=== PATIENT | female | born 1995 | race Two or more races ===

== ENCOUNTER 2021-01-04 14:18 | Outpatient (REF) | payer OTHER, SELFPAY | END 2021-01-04 14:19 | disposition home or self-care (01) | LOC: HO.LAB 14:18 | PROVIDERS: Visit Provider Internal Medicine | DX: Z20.822 Contact with and (suspected) exposure to COVID-19 (principal) | CPT/HCPCS: 36415; C9803; U0003; U0005 ==

== ENCOUNTER 2021-12-23 14:16 | Outpatient (REF) | payer OTHER, SELFPAY ==
[2021-12-23 14:38] LABS: Hematocrit 37.6 % (37.0-47.0); Hemoglobin 12.7 g/dl (12.0-16.0); Mean Corpuscular HGB Conc 33.8 g/dl (31.0-35.0); Mean Corpuscular Hemoglobin 31.4 pg (27.0-33.0); Mean Corpuscular Volume 92.8 fL (80.0-98.0); Mean Platelet Volume 10.5 fL (9.4-12.3); Platelet Count 280 X10*3/uL (160-400); Red Blood Count 4.05 X10*6/uL (4.20-5.50)
[2021-12-23 15:05] LABS: Alanine Aminotransferase 12 U/L (0-31); Albumin Level 4.2 g/dL (3.5-5.0); Alkaline Phosphatase 56 U/L (39-117); Anion Gap 10 (12-20); Aspartate Amino Transferase 15 U/L (5-31); Bilirubin Total 0.8 mg/dL (0.0-1.0); Blood Urea Nitrogen 8 mg/dL (9-16); Calcium 9.4 mg/dL (8.4-10.2); Carbon Dioxide 26 mmol/L (22-29); Chloride 105 mmol/L (96-108); Cholesterol 124 mg/dL; Estimated Glomerular Filt Rate > 60; Glucose Fasting 94 mg/dL (60-99); HDL Cholesterol 41 mg/dL; LDL Cholesterol Calculated 69 mg/dl; Potassium 3.7 mmol/L (3.3-5.1); Sodium 137 mmol/L (135-145); Total Protein 7.7 g/dL (6.5-8.0); Triglycerides 73 mg/dL
[2021-12-23 15:24] LABS: TSH reflex Free T4 1.73 uIU/mL (0.32-4.0)
== END 2021-12-23 14:17 | disposition home or self-care (01) ==
LOC: HO.LAB 14:16
PROVIDERS: Visit Provider Nurse Practitioner Family
DX: M35.00 Sjogren syndrome, unspecified (principal); E78.00 Pure hypercholesterolemia, unspecified; Z76.89 Persons encountering health services in other specified circumstances
CPT/HCPCS: 36415; 80053; 80061; 84443; 85027

== ENCOUNTER 2022-08-24 11:20 | Emergency (ER) | payer OTHER, SELFPAY | END 2022-08-24 14:35 | disposition left against medical advice (07) | PROVIDERS: Emergency Provider Emergency Medicine | DX: R50.9 Fever, unspecified (principal); M54.50 Low back pain, unspecified ==

== ENCOUNTER 2022-10-21 14:09 | Outpatient (REF) | payer OTHER, SELFPAY ==
[2022-10-21 18:08] LABS: CT PCR NOT DETECTED (Not Detect.); NG PCR NOT DETECTED (Not Detect.)
[2022-10-22 12:15] LABS: BV Int Neg Control Negative (Negative); BV Int Pos Control Positive (Positive)
== END 2022-10-21 14:10 | disposition home or self-care (01) ==
LOC: HO.LNP 14:09
PROVIDERS: Visit Provider Physician Assistant
DX: Z11.3 Encounter for screening for infections with a predominantly sexual mode of transmission (principal); R30.0 Dysuria
CPT/HCPCS: 87480; 87491; 87510; 87591; 87660

== ENCOUNTER 2022-11-14 08:20 | Outpatient (REF) | payer OTHER, SELFPAY ==
[2022-11-14 08:39] LABS: MANUAL DIFF FLAG NO
[2022-11-14 10:03] LABS: Basophils Percent Auto 0.5 % (0-2); Eosinophils Absolute Auto 0.2 X10*3/uL (0.0-0.4); Eosinophils Percent Auto 1.9 % (0-4); Hematocrit 41.5 % (37.0-47.0); Hemoglobin 13.8 g/dl (12.0-16.0); Imm Gran Abs Auto 0.03 X10*3/uL (0.00-0.03); Imm Gran Pct Auto 0.3 % (0.0-0.4); Lymphocytes Absolute Auto 1.9 X10*3/uL (1.2-4.9); Lymphocytes Percent Auto 21.9 % (20-40); Mean Corpuscular HGB Conc 33.3 g/dl (31.0-35.0); Mean Corpuscular Hemoglobin 30.6 pg (27.0-33.0); Mean Platelet Volume 10.9 fL (9.4-12.3); Monocytes Absolute Auto 0.5 X10*3/uL (0.1-1.2); Monocytes Percent Auto 6.1 % (2-11); Neutrophils Percent Auto 69.3 % (45-73); Platelet Count 282 X10*3/uL (160-400); Red Blood Count 4.51 X10*6/uL (4.20-5.50); Red Cell Distribution Width 12.3 % (11.0-16.0); White Blood Count 8.6 X10*3/uL (4.8-10.8)
[2022-11-14 14:24] LABS: Alanine Aminotransferase 46 U/L (0-31); Albumin Level 4.5 g/dL (3.5-5.0); Alkaline Phosphatase 61 U/L (39-117); Anion Gap 11 (12-20); Aspartate Amino Transferase 33 U/L (5-31); Bilirubin Total 0.6 mg/dL (0.0-1.0); Blood Urea Nitrogen 15 mg/dL (9-16); Calcium 9.8 mg/dL (8.4-10.2); Carbon Dioxide 26 mmol/L (22-29); Chloride 106 mmol/L (96-108); Cholesterol 129 mg/dL; Estimated Glomerular Filt Rate > 60; Glucose Fasting 87 mg/dL (60-99); HDL Cholesterol 34 mg/dL; LDL Cholesterol Calculated 83 mg/dl; Potassium 4.2 mmol/L (3.3-5.1); Sodium 139 mmol/L (135-145); TSH reflex Free T4 2.16 uIU/mL (0.32-4.0); Total Protein 7.6 g/dL (6.5-8.0); Triglycerides 63 mg/dL; Vitamin D 25-OH Total 40.3 ng/mL (>30)
== END 2022-11-14 08:21 | disposition home or self-care (01) ==
LOC: HO.LAB 08:20
PROVIDERS: PCP Nurse Practitioner Family; Visit Provider Nurse Practitioner Family
DX: Z00.00 Encounter for general adult medical examination without abnormal findings (principal)
CPT/HCPCS: 36415; 80053; 80061; 82306; 84443; 85025

== ENCOUNTER 2022-11-17 17:38 | Outpatient (REF) | payer OTHER, SELFPAY ==
[2022-11-17 18:29] LABS: Influenza A PCR NEGATIVE (Negative); Influenza B PCR NEGATIVE (Negative); Resp Syncy Virus RNA Qual PCR NEGATIVE (Negative); SARS COV2 PCR INHOUSE NEGATIVE (Negative)
== END 2022-11-17 17:39 | disposition home or self-care (01) ==
LOC: HO.LNP 17:38
PROVIDERS: Visit Provider Internal Medicine
DX: Z20.822 Contact with and (suspected) exposure to COVID-19 (principal); R09.89 Other specified symptoms and signs involving the circulatory and respiratory systems
CPT/HCPCS: 0241U

== ENCOUNTER 2022-12-15 08:51 | Outpatient (REF) | payer OTHER, SELFPAY ==
[2022-12-15 09:33] LABS: Alanine Aminotransferase 9 U/L (0-31); Albumin Level 4.2 g/dL (3.5-5.0); Alkaline Phosphatase 65 U/L (39-117); Aspartate Amino Transferase 15 U/L (5-31); Bilirubin Direct 0.2 mg/dL (0.0-0.5); Bilirubin Total 0.7 mg/dL (0.0-1.0); Total Protein 7.1 g/dL (6.5-8.0)
== END 2022-12-15 08:52 | disposition home or self-care (01) ==
LOC: HO.LAB 08:51
PROVIDERS: PCP Nurse Practitioner Family; Visit Provider Nurse Practitioner Family
DX: R79.89 Other specified abnormal findings of blood chemistry (principal)
CPT/HCPCS: 36415; 80076

== ENCOUNTER 2022-12-26 14:07 | Outpatient (REF) | payer OTHER, SELFPAY ==
[2022-12-26 15:33] LABS: Influenza A PCR NEGATIVE (Negative); Influenza B PCR NEGATIVE (Negative); Resp Syncy Virus RNA Qual PCR NEGATIVE (Negative); SARS COV2 PCR INHOUSE NEGATIVE (Negative)
== END 2022-12-26 14:08 | disposition home or self-care (01) ==
LOC: HO.LNP 14:07
PROVIDERS: Visit Provider Physician Assistant
DX: Z20.822 Contact with and (suspected) exposure to COVID-19 (principal); B34.9 Viral infection, unspecified
CPT/HCPCS: 0241U

== ENCOUNTER 2023-10-13 08:05 | Outpatient (AMB) | payer OTHER, SELFPAY ==
--- NOTE | 2023-10-13 08:55 | AM.OFFWIN_ITS ---
Intake Vital Signs 10/13/23 08:56 Height 5 ft 4 in Weight 136 lb 4 oz BMI 23.4 BP 102/68 Blood Pressure Location Rt brachial Position Sitting Pulse 88 Pulse Source Pulse Oximeter Temp 96.5 F L Temp Source Temporal Artery Scan Pulse Oximetry (%) 100 Oxygen Delivery Method Room Air Intake Visit Reasons: EP Lower back and Pelvic pain [phone] Intake Note: pt is here for c.o lower back pain, pelvic pain 1week Patient Tobacco Use Status: Never used Tobacco Patient : No (Patient states miscarriage 09/04/2023. At 6 weeks.) Allergies No Known Allergies Allergy (Verified 10/13/23 08:56) Do you need a note to return to daycare/school/sports/work: Yes HPI HPI Comments History of Present Illness Details The patient is a 31-year-old female in today for a sick visit. She states that for the past 2 weeks she has experienced lower right-sided back pain which radiates down her right leg. She noticed the pain after having a large sneeze. Little relief with [id number] medications. She denies fevers or chills, nausea or vomiting. She denies blood in her urine or any discharge. On physical exam the patient was found to be positive for the straight leg test on the right leg. No point tenderness on the cervical spine. Patient has normal range of motion, flexion, extension, rotation. Pulses are +2. No numbness or tingling. Patient in office urine test was positive for UTI. Patient likely has SI joint dysfunction as well as a urinary tract infection. This is unlikely to be cauda equina, cord compression, or appendicitis. Patient will be given cyclobenzaprine and meloxicam for the lower back pain. She will be given Bactrim for the urinary tract infection. Patient has been educated on the side effects of these medications, and has been educated to complete the entire course of the antibiotic. Labs have been drawn and patient will be called with results. She has been educated on signs of worsening symptoms and when to return to the ER and when to present to the walk-in clinic. She has been instructed to follow-up with her PCP. She is agreeable to this plan. [facility] Medical History (Updated 10/13/23 @ 09:47 by LEIF Delgado) Urinary tract infection Polyalgia Dry mouth Hypothyroidism during (~2019) Sjogrens syndrome Surgical History History of section Family History Mother Mental health disorder Substance use disorder Ovarian cancer, Onset Age: 28 Arthritis SLE (systemic lupus erythematosus) Hypertension Father Mental health disorder Substance use disorder Maternal Grandmother Ovarian cancer Heart disease Maternal Aunt Ovarian cancer Paternal Grandfather FH: testicular cancer Paternal Grandmother Heart disease Social History Housing: House Alcohol intake: current Alcohol intake frequency: holidays/special occasions only Patient Tobacco Use Status: Never used Tobacco e-Cigarette/Vaping Use: Never Used Second Hand Smoke Exposure: No service: No Current occupational status: employed Cognitive needs: No Hearing needs: No Vision needs: Yes (glasses) Review of Systems Const Details: Constitutional : No Weight loss, No Fever, No Chills, No Fatigue, No Malaise Cardiovascular : No Chest Pain, No SOB, No Dyspnea on Exertion Respiratory : No Cough, No Sputum, No Wheezing Gastrointestinal : No Nausea, No Vomiting, No Diarrhea, No Constipation, No abdominal Pain, No Hematochezia. Genitourinary : No Dysuria, No Urinary Frequency, No Hematuria Musculoskeletal : admits lower back pain that radiates down right leg. Neuro : No Weakness, No Numbness, No Dizziness, No Headache Heme/Lymph: No Bruising, No Bleeding,No Lymphadenopathy Endocrine : No Polyuria, No Polydipsia All other systems reviewed and are negative All systems reviewed & are unremarkable except as noted in HPI and below Physical Exam Vital Signs: Last Vital Signs Temp 96.5 F L 10/13/23 08:56 Pulse 88 10/13/23 08:56 BP 102/68 10/13/23 08:56 Pulse Ox 100 10/13/23 08:56 Oxygen Delivery Method Room Air 10/13/23 08:56 BMI result Body Mass Index 23.4 Vital signs reviewed and are stable Appearance: Alert.? Oriented X3.? No acute distress.? Head: Normocephalic, Neck: Normal inspection.? Neck supple.? CVS: Normal heart rate and rhythm.? Pulses normal.? Respiratory: No respiratory distress.? Breath sounds normal.? Abdomen: Soft and nontender.? Skin: Skin warm and dry.? Normal skin color.? Normal skin turgor.? Extremities: No lower extremity edema.? No calf ttp. 5/5 strength to bilateral upper and lower extremities. Back: No midline tenderness, no C-spine tenderness, full range of motion, no CVA tenderness bilaterally. Positive straight leg test. Neuro: Oriented X 3.? No motor deficit.? No sensory deficit. No numbness. Results AMB Urinalysis, Automated UA Leukoctes 15 Jory/uL Last Edit by Jovita Guerrero CMA on 10/13/23 09:09 UA Nitrite Negative Last Edit by Jovita Guerrero, AUTO RESEARCH ENGINEER on 10/13/23 09:09 UA Urobilinogen 0.2 mg/dL Last Edit by Jovita Guerrero, AUTO RESEARCH ENGINEER on 10/13/23 09:09 UA Protein 0 mg/dL Last Edit by Jovita Guerrero, AUTO RESEARCH ENGINEER on 10/13/23 09:09 UA pH 6.0 Last Edit by Jovita Guerrero, AUTO RESEARCH ENGINEER on 10/13/23 09:09 UA Blood 25 Christiano/uL Last Edit by Jovita Guerrero, AUTO RESEARCH ENGINEER on 10/13/23 09:09 UA Specific [place] 1.030 Last Edit by Jovita Guerrero, MAGALY on 10/13/23 09:0 9 UA Ketone Negative Last Edit by Jovita Guerrero, MAGALY on 10/13/23 09:09 UA Bilirubin 1 mg/dL Last Edit by Jovita Guerrero, AUTO RESEARCH ENGINEER on 10/13/23 09:09 UA Glucose 0 mg/dL Last Edit by Jovita Guerrero, MAGALY on 10/13/23 09:09 Assessment & Plan Assessment & Plan (1) Lower back pain: Code(s): M54.50 - Low back pain, unspecified Qualifiers: Back pain laterality: right Chronicity: acute Sciatica presence: unspecified whether sciatica present Qualified Code(s): M54.50 - Low back pain, unspecified Plan: Patient will be given meloxicam and Flexeril to be taken as prescribed. Patient has been educated on the side effects of these medications, and how to take them properly. She has been instructed to follow-up with her PCP. She has been educated that physical therapy would be a good option in the future. She has been educated on when to return to the walk-in and when to report to the emergency room. (2) Urinary tract infection: Comment: Patient will be given Bactrim to be taken as prescribed. She has been educated on the side effects, and that she should take the entire course of medication. Code(s): N39.0 - Urinary tract infection, site not specified Qualifiers: Hematuria presence: without hematuria Urinary tract infection type: site unspecified Qualified Code(s): N39.0 - Urinary tract infection, site not specified Orders: Orders Erythrocyte Sedimentation Rate Today M54.50 - Low back pain, unspecified Complete Blood Count Auto Diff Today M54.50 - Low back pain, unspecified AMB Urinalysis Automated Today Z13.9 - Encounter for screening, unspecified Comprehensive Met. Panel Today M54.50 - Low back pain, unspecified Coding Level of Care Code Est Pt Level 3 (53358) Diagnoses Acute right-sided low back pain, unspecified whether sciatica present M54.50 Back pain laterality: right Chronicity: acute Sciatica presence: unspecified whether sciatica present Urinary tract infection without hematuria, site unspecified N39.0 Hematuria presence: without hematuria Urinary tract infection type: site unspecified Time Spent (min) 30
[2023-10-13 08:56] VITALS: BP 102/68; PULSE 88; TEMP 35.8; O2SAT 100; BMI 23.4
== END 2023-10-13 09:49 | disposition home or self-care (01) ==
PROVIDERS: PCP Nurse Practitioner Family; Visit Provider Nurse Practitioner Primary Care
DX: M54.50 Low back pain, unspecified (principal); N39.0 Urinary tract infection, site not specified
CPT/HCPCS: 81003; 99213; 99499

== ENCOUNTER 2023-10-13 09:24 | Outpatient (REF) | payer OTHER, SELFPAY ==
[2023-10-13 11:46] LABS: MANUAL DIFF FLAG NO
[2023-10-13 12:06] LABS: Alanine Aminotransferase 7 U/L (0-31); Albumin Level 4.2 g/dL (3.5-5.0); Alkaline Phosphatase 73 U/L (39-117); Anion Gap 11 (12-20); Aspartate Amino Transferase 16 U/L (5-31); Bilirubin Total 0.7 mg/dL (0.0-1.0); Blood Urea Nitrogen 10 mg/dL (9-16); Calcium 9.3 mg/dL (8.4-10.2); Carbon Dioxide 27 mmol/L (22-29); Chloride 103 mmol/L (96-108); Estimated Glomerular Filt Rate > 60; Glucose Random 97 mg/dL (60-115); Potassium 3.9 mmol/L (3.3-5.1); Sodium 137 mmol/L (135-145); Total Protein 7.6 g/dL (6.5-8.0)
[2023-10-13 12:14] LABS: Basophils Percent Auto 0.7 % (0-2); Eosinophils Absolute Auto 0.2 X10*3/uL (0.0-0.4); Eosinophils Percent Auto 3.3 % (0-4); Hematocrit 39.9 % (37.0-47.0); Hemoglobin 13.3 g/dl (12.0-16.0); Imm Gran Abs Auto 0.01 X10*3/uL (0.00-0.03); Imm Gran Pct Auto 0.2 % (0.0-0.4); Lymphocytes Absolute Auto 1.7 X10*3/uL (1.2-4.9); Lymphocytes Percent Auto 29.8 % (20-40); Mean Corpuscular HGB Conc 33.3 g/dl (31.0-35.0); Mean Corpuscular Hemoglobin 31.1 pg (27.0-33.0); Mean Corpuscular Volume 93.4 fL (80.0-98.0); Mean Platelet Volume 11.1 fL (9.4-12.3); Monocytes Absolute Auto 0.4 X10*3/uL (0.1-1.2); Monocytes Percent Auto 6.1 % (2-11); Neutrophils Absolute Auto 3.4 x10*3/uL (2.0-8.3); Neutrophils Percent Auto 59.9 % (45-73); Platelet Count 320 X10*3/uL (160-400); Red Blood Count 4.27 X10*6/uL (4.20-5.50); Red Cell Distribution Width 12.4 % (11.0-16.0); White Blood Count 5.7 X10*3/uL (4.8-10.8)
[2023-10-13 12:46] LABS: Erythrocyte Sedimentation Rate 7 MM/HR (0-20)
== END 2023-10-13 09:25 | disposition home or self-care (01) ==
LOC: HO.HMGCLDS 09:24
PROVIDERS: PCP Nurse Practitioner Family; Visit Provider Nurse Practitioner Primary Care
DX: M54.50 Low back pain, unspecified (principal)
CPT/HCPCS: 36415; 80053; 85025; 85652

== ENCOUNTER 2023-11-17 14:50 | Outpatient (AMB) | payer OTHER, SELFPAY ==
[2023-11-17 14:56] VITALS: BP 100/62; PULSE 70; O2SAT 100; BMI 22.8
--- NOTE | 2023-11-17 14:56 | MHC.PC.OV ---
Vital Signs 11/17/23 14:56 Height 5 ft 4 in Weight 133 lb 0.4 oz BMI 22.8 BP 100/62 Blood Pressure Location Lt brachial Position Sitting Pulse 70 Pulse Source Pulse Oximeter Pulse Oximetry (%) 100 Oxygen Delivery Method Room Air Intake Visit Reasons: Annual Exam Intake Note: Patient is here today for a physical. Document Specialist Required: No Allergies cyclobenzaprine Adverse Reaction (Mild, Unverified 11/17/23 15:10) Hives Medication List - Last Reconciled 11/17/23 by LEIF Stewart sertraline 25 mg PO DAILY Tobacco use date assessed: 11/17/23 Dental Screening Dental Screen Date: 11/17/23 Did you have a dental visit in the last 12 months?: No Did you have a dental problem in the last 6 months where you did not have access to dental care?: No HPI Annual Exam HPI Details Patient is a 28-year-old female who presents today for physical exam. Medical history significant for anxiety, depression, right flank pain intermittent for the past 1 month, recurrent UTI-patient reports 4 UTIs in the past 1 year. Patient also reports intermittent burning with urination after intercourse for the past 1 year. Denies any urinary symptoms in the office today. Will call for dental and eye exams. Pap smear 10/2023 with [facility] gynecology-reports results are pending. Reports miscarriage 08/2023. No shortness of breath or chest pain. [facility] Medical History (Updated 11/17/23 @ 16:21 by LEIF Stewart) History of anxiety Elevated LFTs Vitamin D deficiency URI (upper respiratory infection) Uses control control counseling Encounter to establish care Urinary tract infection Polyalgia Dry mouth Hypothyroidism during (~2019) Sjogrens syndrome Surgical History History of section Family History Mother Mental health disorder Substance use disorder Ovarian cancer, Onset Age: 28 Arthritis SLE (systemic lupus erythematosus) Hypertension Father Mental health disorder Substance use disorder Maternal Grandmother Ovarian cancer Heart disease Maternal Aunt Ovarian cancer Paternal Grandfather FH: testicular cancer Paternal Grandmother Heart disease Social History Housing: House Alcohol intake: current Alcohol intake frequency: holidays/special occasions only Patient Tobacco Use Status: Never used Tobacco e-Cigarette/Vaping Use: Never Used Second Hand Smoke Exposure: No service: No Current occupational status: employed Cognitive needs: No Hearing needs: No Vision needs: Yes (glasses) Questionnaire PHQ-9 Over the last 2 weeks, how often have you been bothered by any of the following problems? 1. Little interest or pleasure in doing things: not at all 2. Feeling down, depressed, or hopeless: not at all 3. Trouble falling or staying asleep, or sleeping too much: not at all 4. Feeling tired or having little energy: not at all 5. Poor appetite or overeating: not at all 6. Feeling bad about yourself - or that you are a failure or have let yourself or your family down: not at all 7. Trouble concentrating on things, such as reading the newspaper or watching television: not at all 8. Moving or speaking so slowly that other people could have noticed. Or the opposite - being so fidgety or restless that you have been moving around a lot more than usual: not at all 9. Thoughts that you would be better off or of hurting yourself in some way: not at all Total score: 0 Depression Screening Interpretation: Negative Depression Screening Done: Yes 22061 - PHQ-9 Billing: Yes Source: Developed by Drs. Korey Robles, Pinky Acevedo, Les Rodriguez and colleagues, with an educational carlee from [employer] Thrive Questionnaire Date Thrive assessed: 11/17/23 I am a: Patient What is your living situation today?: I have a steady place to live Within the past 12 months, did the food you bought not last and you didn't have the money to get more?: Never true Within the past 12 months, did you worry whether your food would run out before you got money to buy more?: Never true Do you have trouble paying for medicines?: No Do you have trouble getting transportation to medical appointments?: No Do you have trouble paying your heating and electricity bill?: No Do you have trouble taking care of your child, family member or friend?: No Do you have trouble with day-to-day activities such as bathing, preparing meals, shopping, managing finances, etc.?: No Are you currently unemployed and looking for a job?: No Are you interested in more education?: No Currently or been in a relationship where the following occur: no concerns reported AUDIT C Alcohol Use Questionnaire (AUDIT-C) 1. How often do you have a drink containing alcohol?: Monthly or less 3. How often do you have six or more drinks on one occasion?: Never Total Score: 1 Score Reviewed/Action Taken: No ESTRADA-7 AMB Questionnaire ESTRADA-7 Date ESTRADA - 7 assessed: 11/17/23 Feeling nervous, anxious, or on edge: 0 = Not at all Not being able to stop or control worryin = Not at all Worrying too much about different things: 0 = Not at all Trouble relaxin = Not at all Being so restless that it is hard to sit still: 0 = Not at all Becoming easily annoyed or irritable: 0 = Not at all Feeling afraid as if something awful might happen: 0 = Not at all Total ESTRADA-7 score (0-4 normal; 5-9 mild; 10-14 moderate; 15-21 severe): 0 Source: Developed by Drs. Korey Robles, Pinky Acevedo, Les Rodriguez and colleagues, with an educational carlee from [employer] ESTRADA-7 Assessment Billing ESTRADA-7 Assessment Tool: ESTRADA-7 Assessment 38783 Review of Systems Const Denies body aches, Denies chills, Denies fever(s) and Denies headache(s) Eyes Denies change in vision ENT Denies dizziness, Denies otalgia, Denies headache(s), Denies nasal discharge, Denies sinus pain and Denies sore throat Card Denies chest pain, Denies edema, Denies lightheadedness and Denies dyspnea Resp Denies cough, Denies dyspnea and Denies wheezing GI Denies abdominal pain, Denies constipation, Denies diarrhea, Denies nausea and Denies vomiting Reports as per HPI, Denies hematuria, Denies dysuria and Reports flank pain Musc Denies myalgias, Denies numbness and Denies tingling Skin/Breast Denies rash Neuro Denies dizziness, Denies headache(s), Denies numbness and Denies tingling Aller/Immun Denies wheezing Physical exam (Primary Care) Vital Signs: Last Vital Signs BP 100/62 11/17/23 14:56 Oxygen Delivery Method Room Air 11/17/23 14:56 BMI result Body Mass Index 22.8 Tobacco/Smoking Status: Tobacco use Status Tobacco use date assessed 11/17/23 11/17/23 15:02 Patient Tobacco Use Status Never used Tobacco 11/17/23 15:02 Tobacco use type 12/26/22 12:18 e-Cigarette/Vaping Use Never Used 11/17/23 15:02 PHQ-9: PHQ-9 Score PHQ-9: Total score 0 11/17/23 15:02 Depression Screening Interpretation: Negative Thrive Assessment: Date of Thrive Assessment Date Thrive assessed 11/17/23 11/17/23 15:02 Currently or been in a relationship where the following occur: no concerns reported Const General: cooperative and no acute distress Orientation/consciousness: patient oriented x3 HENMT Head: Yes normocephalic and Yes atraumatic Ears: TM's normal bilaterally Face and sinus: Yes sinuses nontender Mouth: oropharynx normal and moist mucous membranes Throat: Yes posterior oropharynx normal Eyes General: appearance normal, both eyes and all related structures Pupils: Equal, round and reactive pupils present EOM: EOMs intact bilaterally Neck Neck: Yes normal visual inspection, Yes full ROM and Yes no lymphadenopathy Thyroid: Thyroid normal Resp Effort & Inspection: normal respiratory effort and able to speak in complete sentences Auscultation: clear to auscultation bilaterally, no crackles, no rales, no rhonchi and no wheezes Cardio Rate: regular rate Rhythm: regular rhythm Heart sounds: S1 normal heart sound present, S2 normal heart sound present and no murmurs GI Palpation (GI): Soft to palpation, not firm, nontender, no guarding, not rigid and no hepatosplenomegaly Auscultation: normal bowel sounds General: No CVA tenderness Back/Spine/Pelvis Back: No CVA tenderness Thoracic/Lumbar Spine: thoraco-lumbar ROM normal, straight leg raise negative bilaterally, paraspinal muscle tenderness (Right lumbar aspect), No thoracic spinal tenderness and No lumbar spinal tenderness Skin General skin exam: no rashes or lesions noted Neuro General: patient oriented x3 Cranial nerves: Yes Equal, round and reactive pupils present Gait exam (Neuro): Normal gait present Extrem General: Yes full ROM and No edema Office Procedures Flu Questionnaire Does the patient have a severe egg allergy?: No Does the patient have severe life threatening allergies?: No Does the patient have a fever or illness today?: No Has the patient ever had Guillain-[place] Syndrome?: No Has the patient ever had any past reaction to a flu shot?: No Immunizations flu vacc [id number] 6mos up(PF) 60 mcg(15 mcgx4)/0.5 mL IM syringe Performing Provider: LEIF Stewart Performing Location: [facility] Administered by: FLORENTIN Bower on 11/17/23 15:04 Dose Route Admin Location Dispensed Lot Number Expiration Date NDC Neurology Nurse 0.5 mL IM Left Deltoid 0.5 mL [id number] 05/29/24 [id number] [employer] VIS Given Date VIS Provided VIS Publication Date 11/17/23 Single Vaccine 21 Eligibility Eligibility Date Funding Source Not [facility] Eligible 11/17/23 Private Assessment and Plan Assessment & Plan (1) Back pain: Code(s): M54.9 - Dorsalgia, unspecified Plan: Suspect musculoskeletal in origin PT referral, follow-up if no improvement after PT Encouraged patient to try [id number] Tylenol 650 mg every 6 hours as needed or ibuprofen 400 mg every 8 hours as needed Encouraged heat/cold packs p.r.n. (2) Recurrent UTI: Code(s): N39.0 - Urinary tract infection, site not specified Plan: Urology referral for an evaluation and treatment (3) Flank pain: Comment: right intermittent Code(s): R10.9 - Unspecified abdominal pain Plan: Will obtain urinalysis No symptoms today (4) Depression: Code(s): F32.A - Depression, unspecified Qualifiers: Depression Type: other depression Qualified Code(s): F32.89 - Other specified depressive episodes Plan: Stable with sertraline (5) Anxiety: Code(s): F41.9 - Anxiety disorder, unspecified Plan: Same as above (6) Adult general medical exam: Comment: Covid-19 IZs Moderna x2. Code(s): Z00.00 - Encounter for general adult medical examination without abnormal findings Plan: Repeat in 1 year Orders: Orders Influenza [id number] Immunization Today Z23 - Encounter for immunization TSH reflex Free T4 Today Z00.00 - Encounter for general adult medical examination without abnormal findings PT Evaluation and Treatment Today M54.9 - Dorsalgia, unspecified Vitamin D 25-OH Total Today Z00.00 - Encounter for general adult medical examination without abnormal findings Lipid Panel Today Z00.00 - Encounter for general adult medical examination without abnormal findings UA CC w/rflx Micro + Cult Today R10.9 - Unspecified abdominal pain Referrals Urology Referral N39.0 - Urinary tract infection, site not specified Coding Level of Care Code Est Pt Prev Care 18-39y(13137) Diagnoses Back pain M54.9 Recurrent UTI N39.0 Flank pain R10.9 Other depression F32.89 Depression Type: other depression Anxiety F41.9 Adult general medical exam Z00.00 Additional Codes ESTRADA-7 Assessment Billing - ESTRADA-7 Assessment Tool: ESTRADA-7 Assessment [id number] ([id number])
== END 2023-11-17 15:28 | disposition home or self-care (01) ==
PROVIDERS: Visit Provider Nurse Practitioner Family
DX: Z00.00 Encounter for general adult medical examination without abnormal findings (principal); M54.9 Dorsalgia, unspecified; N39.0 Urinary tract infection, site not specified; Z23 Encounter for immunization; R10.9 Unspecified abdominal pain; F32.89 Other specified depressive episodes; F41.9 Anxiety disorder, unspecified
CPT/HCPCS: 90471; 90686; 99395

== ENCOUNTER 2023-11-20 09:18 | Outpatient (REF) | payer OTHER, SELFPAY ==
[2023-11-20 11:02] LABS: Cholesterol 126 mg/dL (<200); HDL Cholesterol 40 mg/dL (>40); LDL Cholesterol Calculated 68 mg/dL (<100); TSH reflex Free T4 2.78 uIU/mL (0.32-4.0); Triglycerides 90 mg/dL (<150); Vitamin D 25-OH Total 29.4 ng/mL (>30)
[2023-11-20 11:27] LABS: Appearance Urine Clear; Color Urine Yellow; Glucose Urine UA Negative (Negative); Leukocyte Esterase Urine Small (1+) (Negative); Nitrite Urine Negative (Negative); PH 5.5 (5.0-9.0); Specific Gravity - Urine 1.015 (1.005-1.025); UMIC TRIGGER UACC YES; Urine Blood Trace (Negative); Urine Ketones Negative (Negative); Urine Protein Negative (Neg-Trace)
[2023-11-20 11:48] LABS: Bacteria Urine None Seen (None Seen); Hyaline Casts Urine 0-2 /LPF (0-2); RBC Urine 0-2 /HPF (0-2); UACC Culture Trigger YES; WBC Urine 0-5 /HPF (0-5)
== END 2023-11-20 09:19 | disposition home or self-care (01) ==
LOC: HO.LAB 09:18
PROVIDERS: Visit Provider Nurse Practitioner Family
DX: Z00.00 Encounter for general adult medical examination without abnormal findings (principal); R10.9 Unspecified abdominal pain
CPT/HCPCS: 36415; 80061; 81001; 82306; 84443; 87086

== ENCOUNTER 2024-01-04 14:55 | Outpatient (AMB) | payer MEDICAID, SELFPAY ==
--- NOTE | 2024-01-04 15:00 | A.OFFVIS_ITS ---
Intake Intake Visit Reasons: recurrent UTI's Intake Note: New Patient presents for initial visit for Recuurent UTI Urology Medications: none Blood Thinner: none PVR:0ml's Item Processing Clerk Required: No Accompanied by: Self / Same As Patient Allergies cyclobenzaprine Adverse Reaction (Mild, Unverified 01/04/24 15:32) Hives Medication List - Last Reconciled 01/04/24 by HUONG Rodriguez sertraline 25 mg PO DAILY HPI HPI Comments History of Present Illness Details Amber is a very pleasant 28-year-old female patient of Dr. Carver. She has a past medical history of anxiety, elevated LFTs, vitamin-D deficiency, polyalgia, and sjogrens syndrome. She presents to the office today as a new patient for recurrent urinary tract infections. In discussion with the patient today she reports having had a proximally 4 urinary tract infections over the last year. When asked she denies any issues with constipation. She currently denies any UTI like symptoms. She reports typically when she has a urinary tract infection she experiences low back pain. She reports having followed up with her UTIs with her PCP in the past however given recurrence recommendations were made for Urology follow-up. When asked she currently denies urinary urgency, urinary frequency, incontinence, nocturia, hematuria, dysuria, foul smelling urine, changes to urinary stream, flank pain, fever, and or chills. She is happy with her current voiding parameters. In office urinalysis results reviewed with the patient today. She does report to be sexually active with 1 partner. She otherwise offers no other issues or concerns at this time. [facility] Medical History History of anxiety Elevated LFTs Vitamin D deficiency URI (upper respiratory infection) Uses control control counseling Encounter to establish care Urinary tract infection Polyalgia Dry mouth Hypothyroidism during (~2019) Sjogrens syndrome Surgical History History of section Family History Mother Mental health disorder Substance use disorder Ovarian cancer, Onset Age: 28 Arthritis SLE (systemic lupus erythematosus) Hypertension Father Mental health disorder Substance use disorder Maternal Grandmother Ovarian cancer Heart disease Maternal Aunt Ovarian cancer Paternal Grandfather FH: testicular cancer Paternal Grandmother Heart disease Social History Housing: House Alcohol intake: current Alcohol intake frequency: holidays/special occasions only Patient Tobacco Use Status: Never used Tobacco e-Cigarette/Vaping Use: Never Used Second Hand Smoke Exposure: No service: No Current occupational status: employed Cognitive needs: No Hearing needs: No Vision needs: Yes (glasses) Review of Systems Const Reports no additional complaints Eyes Reports no additional complaints ENT Reports no additional complaints Card Reports no additional complaints Resp Reports no additional complaints GI Reports no additional complaints Reports as per HPI Musc Reports as per HPI Neuro Reports no additional complaints Psych Reports as per HPI Endo Reports no additional complaints Tad/Lymph Reports no additional complaints Aller/Immun Reports no additional complaints Physical Exam Const General: cooperative, healthy appearing, comfortable, no acute distress, well developed, alert and awake Nutritional Appearance: average body habitus and well nourished Orientation/consciousness: patient oriented x3 Limitations: no limitations HEENT Head: Yes normal to inspection, Yes normocephalic and Yes atraumatic Ears: hearing grossly normal bilaterally Eyes General: appearance normal, both eyes and all related structures Neck Neck: Yes normal visual inspection and Yes trachea midline Chest Chest palpation & inspection: normal inspection of the chest Resp Effort & Inspection: normal respiratory effort and able to speak in complete sentences Cardio Rate: regular rate GI Inspection: Yes normal to inspection General: Yes no CVA tenderness Back/Spine/Pelvis Back: no CVA tenderness Skin General skin exam: no rashes or lesions noted Neuro General: patient oriented x3 Extrem General: Yes normal to inspection Psych Appearance: grossly normal and well kempt Mental Status: mental status grossly normal Speech and movement: Normal speech and movement present and Clear speech present Affect: normal affect Attitude: cooperative Thought process: Normal thought process present Thought content: Normal thought content present Insight: Fair insight present (Psych) Judgement: Fair judgement present (Psych) Office Procedures Post Void Residual Post Residual Void Post Void Residual (PVR): 0 [id number]-[id number] Void Residual by ultrasound Results AMB Urinalysis, Automated UA Leukoctes 15 Jory/uL Last Edit by Yecenia Freeman on 01/04/24 15:17 UA Nitrite Negative Last Edit by Yecenia Freeman on 01/04/24 15:17 UA Urobilinogen 0.2 mg/dL Last Edit by Kimberleee Pete on 01/04/24 15:17 UA Protein 15 mg/dL Last Edit by Yecenia Freeman on 01/04/24 15:17 UA pH 6.0 Last Edit by Mattiyce Pete on 01/04/24 15:17 UA Blood 25 Christiano/uL Last Edit by Yecenia Freeman on 01/04/24 15:17 UA Specific Corona 1.030 Last Edit by Yecenia Freeman on 01/04/24 15:17 UA Ketone Negative Last Edit by Yecenia Freeman on 01/04/24 15:17 UA Bilirubin 1 mg/dL Last Edit by Yecenia Freeman on 01/04/24 15:17 UA Glucose 0 mg/dL Last Edit by Yecenia Freeman on 01/04/24 15:17 Results Reviewed Results Reviewed: Laboratory Last Values Urine pH (Auto) 6.0 01/04/24 15:06 Specific Corona (Auto) 1.030 01/04/24 15:06 Urine Protein (Auto) 15 mg/dL 01/04/24 15:06 Glucose (UA)(Auto) 0 mg/dL 01/04/24 15:06 Urine Ketones (Auto) Negative 01/04/24 15:06 Urine Blood (Auto) 25 Christiano/uL 01/04/24 15:06 Urine Nitrite (Auto) Negative 01/04/24 15:06 Urine Bilirubin (Auto) 1 mg/dL 01/04/24 15:06 Urine Urobilinogen (Auto) 0.2 mg/dL 01/04/24 15:06 Leukocyte Esterase (Auto) 15 Jory/uL 01/04/24 15:06 Assessment & Plan Assessment & Plan (1) Recurrent UTI: Code(s): N39.0 - Urinary tract infection, site not specified Plan In office urinalysis results reviewed with the patient today; as noted above. Discussed at length potential causes of recurrent urinary tract infection. Will obtain retroperitoneal ultrasound for further assessment evaluation. Discussed near future in office cystoscopy and or microgen if symptoms persist and/or worsen. She currently denies any bothersome urinary issues or concerns. She reports be happy with current voiding parameters. Discussed UTI prevention with D mannose supplement, vitamin-C, increasing fluid intake, behavioral therapy with timed voiding, perineal hygiene and postcoital voiding, and management of constipation with stool softeners and increased fiber intake. Follow-up in 1-2 months with imaging to be completed prior; or sooner with any issues, concerns, and or questions. Orders: Orders US retroperitoneal comp Today N39.0 - Urinary tract infection, site not specified AMB Urinalysis Automated Today Z13.9 - Encounter for screening, unspecified AMB Post Void Residual by ultrasound Today N39.0 - Urinary tract infection, site not specified Patient Instructions: The patient had an opportunity to ask questions regarding the treatment plan. All questions were answered. Physical exam, labs, and imaging were discussed and reviewed in detail. As well as risks, benefits, and discussion of treatment choices. No major barriers to understanding were identified. The patient expressed understanding and agreement with the above treatment plan. The patient was made aware they should contact our office by phone for worsening of their current condition, the appearance of new symptoms, or with any questions or concerns. Compliance is encouraged with any medications and follow up testing that is ordered. It is a privilege to be allowed the opportunity to participate in? your urological care.? Again, if you have any questions or concerns If you have any questions or concerns please do not hesitate to contact me. The office is [phone]. This note is constructed using voice recognition software. While every effort has been made to ensure accuracy chief medical officer errors may have been included. Yours sincerely, HUONG Rodriguez Coding Level of Care Code New Pt Level 3 (28067) Diagnoses Recurrent UTI N39.0 CPT Codes Post Residual Void - PVR CPT Code: 76189-Ufri Void Residual by ultrasound ([id number])
== END 2024-01-04 15:30 | disposition home or self-care (01) ==
PROVIDERS: PCP Nurse Practitioner Family; Visit Provider Nurse Practitioner Family
DX: N39.0 Urinary tract infection, site not specified (principal)
CPT/HCPCS: 99203

== ENCOUNTER → 2024-01-04 14:55 | Outpatient (BNVA) | payer MEDICAID, SELFPAY | PROVIDERS: PCP Nurse Practitioner Family; Visit Provider Nurse Practitioner Family | DX: N39.0 Urinary tract infection, site not specified (principal) | CPT/HCPCS: 51798; 81003; 99212 ==

== ENCOUNTER 2024-02-19 10:23 | Outpatient (REF) | payer OTHER, SELFPAY | END 2024-02-19 10:24 | disposition home or self-care (01) | LOC: HO.US 10:23 | PROVIDERS: PCP Nurse Practitioner Family; Visit Provider Nurse Practitioner Family | DX: N39.0 Urinary tract infection, site not specified (principal) | CPT/HCPCS: 76770 ==

== ENCOUNTER 2025-06-21 15:33 | Outpatient (AMB) | payer OTHER, SELFPAY ==
--- NOTE | 2025-06-21 15:36 | A.OFFPC_ITS ---
Vital Signs 06/21/25 15:38 Height 5 ft 4 in Weight 137 lb BMI 23.5 BP 108/74 Blood Pressure Location Lt brachial Position Sitting Intake Visit Reasons: Back Pain Hand Inserter Operator Required: No Accompanied by: Self / Same As Patient Allergies cyclobenzaprine Adverse Reaction (Mild, Verified 06/21/25 15:56) Hives Medication List - Last Reconciled 06/21/25 by Keri Garzon MD No Known Home Meds Tobacco use date assessed: 06/21/25 Dental Screening Dental Screen Date: 06/21/25 Did you have a dental visit in the last 12 months?: No Did you have a dental problem in the last 6 months where you did not have access to dental care?: No Was dental information given to patient?: Patient has dentist HPI HPI Comments History of Present Illness Details The patient is a 30-year-old female presenting with back pain. The pain is primarily located in the buttock area, more on the left side, and occasionally on the right. The pain began approximately one month after a section performed in late August. The patient denies any fever, urinary or fecal incontinence, and the pain does not radiate to the legs. She reports that [id number] medications such as Tylenol and Advil, as well as prescribed muscle relaxants and naproxen, have not provided significant relief. The patient has a history of recurrent urinary tract infections and an allergic reaction to cyclobenzaprine, which causes hives. The allergic reaction was initially thought to be related to an antibiotic prescribed for a urinary tract infection. [facility] Medical History (Updated 06/21/25 @ 16:07 by Keri Garzon MD) History of anxiety Elevated LFTs Vitamin D deficiency URI (upper respiratory infection) Uses control control counseling Encounter to establish care Urinary tract infection Polyalgia Dry mouth Hypothyroidism during (~2019) Sjogrens syndrome Surgical History History of section Family History Mother Mental health disorder Substance use disorder Ovarian cancer, Onset Age: 28 Arthritis SLE (systemic lupus erythematosus) Hypertension Father Mental health disorder Substance use disorder Maternal Grandmother Ovarian cancer Heart disease Maternal Aunt Ovarian cancer Paternal Grandfather FH: testicular cancer Paternal Grandmother Heart disease Social History Housing: House Alcohol intake: current Alcohol intake frequency: holidays/special occasions only Alcohol type: other Patient Tobacco Use Status: Never used Tobacco e-Cigarette/Vaping Use: Never Used Second Hand Smoke Exposure: No service: No Current occupational status: employed Current occupational exposures/hazards: No Cognitive needs: No Hearing needs: No Vision needs: Yes (glasses) Questionnaire PHQ-9 Over the last 2 weeks, how often have you been bothered by any of the following problems? 1. Little interest or pleasure in doing things: not at all 2. Feeling down, depressed, or hopeless: not at all 3. Trouble falling or staying asleep, or sleeping too much: not at all 4. Feeling tired or having little energy: not at all 5. Poor appetite or overeating: not at all 6. Feeling bad about yourself - or that you are a failure or have let yourself or your family down: not at all 7. Trouble concentrating on things, such as reading the newspaper or watching television: not at all 8. Moving or speaking so slowly that other people could have noticed. Or the opposite - being so fidgety or restless that you have been moving around a lot more than usual: not at all 9. Thoughts that you would be better off or of hurting yourself in some way: not at all Total score: 0 Depression Screening Interpretation: Negative Depression Screening Done: Yes 28517 - PHQ-9 Billing: Yes Source: Developed by Drs. Korey Robles, Pinky Acevedo, Les Rodriguez and colleagues, with an educational carlee from [employer]. Thrive Questionnaire Date Thrive assessed: 06/21/25 I am a: Patient What is your living situation today?: I have a steady place to live Within the past 12 months, did the food you bought not last and you didn't have the money to get more?: Never true Within the past 12 months, did you worry whether your food would run out before you got money to buy more?: Never true Do you have trouble paying for medicines?: No Do you have trouble getting transportation to medical appointments?: No Do you have trouble paying your heating and electricity bill?: No Do you have trouble taking care of your child, family member or friend?: No Do you have trouble with day-to-day activities such as bathing, preparing meals, shopping, managing finances, etc.?: No Are you currently unemployed and looking for a job?: No Are you interested in more education?: No Please select the resources that you would like help with: None Currently or been in a relationship where the following occur: No concerns reported THRIVE Score: 0 AUDIT C Alcohol Use Questionnaire (AUDIT-C) 1. How often do you have a drink containing alcohol?: Monthly or less 2. How many drinks containing alcohol do you have on a typical day when you are drinking?: 1 or 2 3. How often do you have six or more drinks on one occasion?: Never Total Score: 1 Score Reviewed/Action Taken: No ESTRADA-7 AMB Questionnaire ESTRADA-7 Date ESTRADA - 7 assessed: 06/21/25 Feeling nervous, anxious, or on edge: 0 = Not at all Not being able to stop or control worryin = Not at all Worrying too much about different things: 0 = Not at all Trouble relaxin = Not at all Being so restless that it is hard to sit still: 0 = Not at all Becoming easily annoyed or irritable: 0 = Not at all Feeling afraid as if something awful might happen: 0 = Not at all Total ESTRADA-7 score (0-4 normal; 5-9 mild; 10-14 moderate; 15-21 severe): 0 Source: Developed by Drs. Korey Robles, Pinky Acevedo, Les Rodriguez and colleagues, with an educational carlee from [employer]. ESTRADA-7 Assessment Billing ESTRADA-7 Assessment Tool: ESTRADA-7 Assessment 18510 Review of Systems Const All systems reviewed & are unremarkable except as noted in HPI and below Card Denies chest pain at rest, Denies chest pain with activity, Denies edema, Denies irregular heart rhythm, Denies claudication, Denies dyspnea, Denies dyspnea on exertion, Denies orthopnea, Denies paroxysmal nocturnal dyspnea and Denies slow heart rate Resp Denies cough, Denies dyspnea and Denies dyspnea on exertion GI Denies abdominal pain, Denies change in bowel habits, Denies excessive flatus, Denies nausea and Denies vomiting Denies urinary incontinence, Denies urinary hesitancy and Denies urinary urgency Musc Reports back pain, Denies atrophy, Denies deformity and Denies limited range of motion Skin/Breast Denies bleeding lesions, Denies changing lesions and Denies rash Physical exam (Primary Care) Vital Signs: Last Vital Signs BP 108/74 06/21/25 15:38 BMI result Body Mass Index 23.5 Tobacco/Smoking Status: Tobacco use Status Tobacco use date assessed 06/21/25 06/21/25 15:44 Patient Tobacco Use Status Never used Tobacco 06/21/25 15:44 Tobacco use type 12/26/22 12:18 e-Cigarette/Vaping Use Never Used 06/21/25 15:44 PHQ-9: PHQ-9 Score PHQ-9: Total score 0 06/21/25 15:59 Depression Screening Interpretation: Negative Thrive Assessment: Date of Thrive Assessment Date Thrive assessed 06/21/25 06/21/25 15:44 Currently or been in a relationship where the following occur: No concerns reported Resp Effort & Inspection: normal respiratory effort Auscultation: clear to auscultation bilaterally Cardio Jugular venous distension: no JVD Rate: regular rate Rhythm: regular rhythm Heart sounds: S1 normal heart sound present and S2 normal heart sound present Back/Spine/Pelvis Thoracic/Lumbar Spine: straight leg raise negative bilaterally Extrem General: Yes full ROM Coding Level of Care Code Est Pt Level 3 (27992) Complex EM visit Add On G2211 Diagnoses Lumbar pain M54.50 Additional Codes ESTRADA-7 Assessment Billing - ESTRADA-7 Assessment Tool: ESTRADA-7 Assessment 52180 ([id number]) PHQ-9 - 12848 - PHQ-9 Billing: Yes ([id number]) Time Spent (min) 19 Assessment & Plan Assessment & Plan (1) Lumbar pain: Code(s): M54.50 - Low back pain, unspecified Category: Medical Plan The plan includes obtaining an x-ray to further evaluate the cause of the back pain. Physical therapy is recommended to address the localized pain in the buttock area, which may be related to piriformis syndrome. The patient is advised to complete the x-ray within three months, with the option to do it at a nearby facility. Patient was informed and verbally consented to the use of an ambient scribe for clinic note documentation during this visit. I discussed with the patient that the symptoms do not suggest sciatica or cauda equina syndrome, as there is no numbness, bowel or bladder incontinence, or fever. I explained that the pain might be due to mild disc degeneration or arthritis, and we will perform an x-ray to investigate further. Physical therapy was recommended as it is often effective for localized pain, and the patient was informed about the possibility of piriformis syndrome. Orders: Orders XR lumbar spine 2-3V 06/21/25 M54.50 - Low back pain, unspecified PT Evaluation and Treatment 06/21/25 M54.50 - Low back pain, unspecified
[2025-06-21 15:38] VITALS: BP 108/74; BMI 23.5
== END 2025-06-21 16:11 | disposition home or self-care (01) ==
LOC: HO.HMCH 15:34
PROVIDERS: PCP Internal Medicine; Visit Provider Internal Medicine
DX: M54.50 Low back pain, unspecified (principal)

== ENCOUNTER 2025-06-21 15:33 | Outpatient (REF) | payer OTHER, SELFPAY ==
--- NOTE | ~2025-06-21 | XR_ITS ---
EXAMINATION: XR LUMBOSACRAL SPINE CLINICAL INFORMATION: M54.50 - Low back pain, unspecified COMPARISON: None available. TECHNIQUE: Three views of the lumbosacral spine. FINDINGS: Normal alignment. Vertebral body heights are preserved. Mild narrowing of L5-S1 disc space. Sacroiliac joints are intact. Tiny marginal osteophytes at L5-S1. XR/XR lumbar spine 2-3V IMPRESSION: Minimal degenerative changes at L5-S1. Electronically signed by: Snow Costa MD 06/21/2025 04:47 PM EDT
== END 2025-06-21 15:34 | disposition home or self-care (01) ==
LOC: HO.XRAY 15:33
PROVIDERS: PCP Internal Medicine; Visit Provider Internal Medicine
DX: M54.50 Low back pain, unspecified (principal); Z13.31 Encounter for screening for depression; Z13.30 Encounter for screening examination for mental health and behavioral disorders, unspecified
CPT/HCPCS: 72100; 96127; 99212

== ENCOUNTER → 2025-06-21 16:20 | Outpatient (BNV) | payer OTHER, SELFPAY | PROVIDERS: PCP Internal Medicine; Visit Provider Radiology Body Imaging | DX: M54.50 Low back pain, unspecified (principal) | CPT/HCPCS: 72100 ==

== ENCOUNTER 2025-07-21 11:28 | Outpatient (AMB) | payer OTHER, SELFPAY ==
--- NOTE | 2025-07-21 11:37 | A.OFFPC_ITS ---
Vital Signs 07/21/25 11:39 Height 5 ft 4 in Weight 137 lb BMI 23.5 BP 104/62 Blood Pressure Location Lt brachial Position Sitting Pulse 85 Pulse Source Pulse Oximeter Pulse Oximetry (%) 98 Oxygen Delivery Method Room Air Intake Visit Reasons: Anxiety, Panic Attacks Inspectors And Regulatory Officers Required: No Accompanied by: Self / Same As Patient Allergies cyclobenzaprine Adverse Reaction (Mild, Verified 07/21/25 11:59) Hives Medication List - Last Reconciled 07/21/25 by Trudi Martinez PA-C No Known Home Meds Tobacco use date assessed: 07/21/25 Dental Screening Dental Screen Date: 07/21/25 Did you have a dental visit in the last 12 months?: Yes Did you have a dental problem in the last 6 months where you did not have access to dental care?: No Was dental information given to patient?: Patient has dentist HPI Anxiety, Panic Attacks HPI0 Details 30 year old female with past medical his tory of depression and anxiety last seen 05/[address] Gutierrez coming in for acute problem. Presenting with anxiety and panic attacks. Anxiety has been present since 2013, with work identified as a primary trigger. Previous treatment with sertraline was ineffective at a low dose of 25 mg, last used in 2021. The patient prefers as-needed medication due to the episodic nature of her panic attacks, which vary in frequency. She is willing to try propranolol, which does not cause drowsiness, unlike hydroxyzine. [facility] Medical History History of anxiety Elevated LFTs Vitamin D deficiency URI (upper respiratory infection) Uses control control counseling Encounter to establish care Urinary tract infection Polyalgia Dry mouth Hypothyroidism during (~2019) Sjogrens syndrome Surgical History History of section Family History Mother Mental health disorder Substance use disorder Ovarian cancer, Onset Age: 28 Arthritis SLE (systemic lupus erythematosus) Hypertension Father Mental health disorder Substance use disorder Maternal Grandmother Ovarian cancer Heart disease Maternal Aunt Ovarian cancer Paternal Grandfather FH: testicular cancer Paternal Grandmother Heart disease Social History Housing: House Alcohol intake: current Alcohol intake frequency: holidays/special occasions only Alcohol type: other Patient Tobacco Use Status: Never used Tobacco e-Cigarette/Vaping Use: Never Used Second Hand Smoke Exposure: No service: No Current occupational status: employed Current occupational exposures/hazards: No Cognitive needs: No Hearing needs: No Vision needs: Yes (glasses) Questionnaire PHQ-9 Over the last 2 weeks, how often have you been bothered by any of the following problems? 1. Little interest or pleasure in doing things: not at all 2. Feeling down, depressed, or hopeless: not at all 3. Trouble falling or staying asleep, or sleeping too much: not at all 4. Feeling tired or having little energy: not at all 5. Poor appetite or overeating: not at all 6. Feeling bad about yourself - or that you are a failure or have let yourself or your family down: not at all 7. Trouble concentrating on things, such as reading the newspaper or watching television: not at all 8. Moving or speaking so slowly that other people could have noticed. Or the op posite - being so fidgety or restless that you have been moving around a lot more than usual: not at all 9. Thoughts that you would be better off or of hurting yourself in some way: not at all Total score: 0 Depression Screening Interpretation: Negative Depression Screening Done: Yes Source: Developed by Drs. Korey Robles, Pinky Acevedo, Les Rodriguez and colleagues, with an educational carlee from [employer]. Thrive Questionnaire Date Thrive assessed: 07/21/25 I am a: Patient What is your living situation today?: I have a steady place to live Within the past 12 months, did the food you bought not last and you didn't have the money to get more?: Never true Within the past 12 months, did you worry whether your food would run out before you got money to buy more?: Never true Do you have trouble paying for medicines?: No Do you have trouble getting transportation to medical appointments?: No Do you have trouble paying your heating and electricity bill?: No Do you have trouble taking care of your child, family member or friend?: No Do you have trouble with day-to-day activities such as bathing, preparing meals, shopping, managing finances, etc.?: No Are you currently unemployed and looking for a job?: No Are you interested in more education?: No Please select the resources that you would like help with: None Currently or been in a relationship where the following occur: No concerns reported THRIVE Score: 0 ESTRADA-7 AMB Questionnaire ESTRADA-7 Date ESTRADA - 7 assessed: 06/21/25 Feeling nervous, anxious, or on edge: 0 = Not at all Not being able to stop or control worryin = Not at all Worrying too much about different things: 0 = Not at all Trouble relaxin = Not at all Being so restless that it is hard to sit still: 0 = Not at all Becoming easily annoyed or irritable: 0 = Not at all Feeling afraid as if something awful might happen: 0 = Not at all Total ESTRADA-7 score (0-4 normal; 5-9 mild; 10-14 moderate; 15-21 severe): 0 Source: Developed by Drs. Korey Robles, Pinky Acevedo, Les Rodriguez and colleagues, with an educational carlee from [employer]. Review of Systems Const Denies body aches, Denies chills, Denies fever(s), Denies headache(s) and Denies poor appetite Eyes Reports no additional complaints ENT Denies dizziness and Denies headache(s) Card Denies chest pain, Denies lightheadedness and Denies dyspnea Resp Denies dyspnea GI Denies nausea and Denies vomiting Reports no additional complaints Musc Reports no additional complaints and Denies abnormal gait Skin/Breast Reports system reviewed and no additional complaints, except as documented Neuro Denies abnormal gait, Denies dizziness and Denies headache(s) Psych Reports no additional complaints Physical exam (Primary Care) Vital Signs: Last Vital Signs Pulse 85 07/21/25 11:39 BP 104/62 07/21/25 11:39 Pulse Ox 98 07/21/25 11:39 Oxygen Delivery Method Room Air 07/21/25 11:39 BMI result Body Mass Index 23.5 Tobacco/Smoking Status: Tobacco use Status Tobacco use date assessed 07/21/25 07/21/25 11:42 Patient Tobacco Use Status Never used Tobacco 07/21/25 11:42 Tobacco use type 12/26/22 12:18 e-Cigarette/Vaping Use Never Used 07/21/25 11:42 PHQ-9: PHQ-9 Score PHQ-9: Total score 0 07/21/25 11:58 Depression Screening Interpretation: Negative Thrive Assessment: Date of Thrive Assessment Date Thrive assessed 07/21/25 07/21/25 11:42 Currently or been in a relationship where the following occur: No concerns reported Const General: cooperative, healthy appearing, comfortable and no acute distress Orientation/consciousness: patient oriented x3 HENMT Head: Yes normocephalic Ears: hearing grossly normal bilaterally General nose exam: Normal external nose present Eyes General: appearance normal, both eyes and all related structures Conjunctivae: conjunctivae normal Neck Neck: Yes full ROM and Yes no lymphadenopathy Resp Effort & Inspection: normal respiratory effort Auscultation: clear to auscultation bilaterally, no crackles, no rales, no rhonchi and no wheezes Cardio Rate: regular rate Rhythm: regular rhythm Skin General skin exam: no rashes or lesions noted Neuro General: patient oriented x3 Gait exam (Neuro): Normal gait present Extrem General: Yes normal to inspection, Yes full ROM and No edema Psych Affect: normal affect Attitude: cooperative Insight: Good insight present (Psych) Judgement: Good judgement present (Psych) Coding Level of Care Code Est Pt Level 3 (21098) Diagnoses Anxiety F41.9 Other depression F32.89 Depression Type: other depression Assessment & Plan Assessment & Plan (1) Anxiety: Code(s): F41.9 - Anxiety disorder, unspecified Category: Medical Plan: The patient will begin propranolol for situational anxiety, as it is less likely to cause drowsiness and can be used as needed. Citalopram will also be started at a low dose for maintenance therapy, with dosage adjustments possible after one month based on response. The patient should monitor for side effects such as dizziness or lightheadedness and report them if they occur. A follow-up is planned for October, but the patient is advised to contact the clinic sooner if her anxiety is not well controlled or if there are medication issues. (2) Depression: Code(s): F32.A - Depression, unspecified Category: Medical Qualifiers: Depression Type: other depression Qualified Code(s): F32.89 - Other specified depressive episodes Plan: see above plan Plan This note was constructed using voice recognition software. While every effort has been made to ensure accuracy and assembly stock supervisor, still areas may have been in cluded sometimes these areas may affect the content or meeting of the given symptoms. Total time spent caring for the patient today was 20 minutes. This includes time spent before the visit reviewing the chart, time spent during the visit, and time spent after the visit and documentation. Patient was informed and verbally consented to the use of an ambient scribe for clinic note documentation during this visit. Medications: New citalopram 10 mg PO DAILY 90 tabs 1RF propranolol 10 mg PO BID PRN 30 tabs 0RF anxiety
[2025-07-21 11:39] VITALS: BP 104/62; PULSE 85; O2SAT 98; BMI 23.5
== END 2025-07-21 12:14 | disposition home or self-care (01) ==
LOC: HO.HMCH 11:29
PROVIDERS: PCP Internal Medicine
DX: F41.9 Anxiety disorder, unspecified (principal); F32.89 Other specified depressive episodes

== ENCOUNTER → 2025-07-21 11:28 | Outpatient (BNVA) | payer OTHER, SELFPAY | PROVIDERS: PCP Internal Medicine | DX: F41.9 Anxiety disorder, unspecified (principal); F32.89 Other specified depressive episodes | CPT/HCPCS: 99212 ==